=== PATIENT | male | born 1950 | race Caucasian/White ===

== ENCOUNTER 2017-05-17 13:09 | Emergency (ER) | payer MEDICARE, BC ==
[2017-05-17] MEDS ORDERED: BUFFERED LIDOCAINE 10 ML SYRINGE SUBQ STA (13:54)
[2017-05-17] MEDS ORDERED: TETANUS/DIPHTHERIA/PERTUSSIS 0.5 ML SYRINGE IM ONE (13:54)
--- NOTE | 2017-05-17 13:56 | ED Physician Documentation ---
PD HPI UPPER EXT INJURY - Stated complaint Stated Complaint: LEFT FINGER PX - Chief complaint Chief Complaint: Ext Problem - History obtained from History obtained from: Patient - History of Present Illness Location: Other (66-year-old gentleman with unknown tetanus status, he has not been able to get his wedding ring off for years and he burned himself while cooking 2 nights ago and his finger swelled even more and now needs the ring cut off.) Review of Systems Constitutional: reports: Reviewed and negative Throat: reports: Reviewed and negative Cardiac: reports: Reviewed and negative PD PAST MEDICAL HISTORY - Present Medications Home Medications: Ambulatory Orders Medication Instructions Recorded Confirmed No Known Home Medications [No 05/17/17 05/17/17 Known Home Medications] - Allergies Allergies/Adverse Reactions: Allergies Allergy/AdvReac Type Severity Reaction Status Date / Time No Known Drug Allergies Allergy Verified 05/17/17 13:18 PD ED PE NORMAL - Vitals Vital signs reviewed: Yes - General General: Alert and oriented X 3, No acute distress - Extremities Extremities: Other (Scattered second-degree maxwell over the dorsum of the third through fifth fingers of the left hand. The ears are all little swollen and it is clear that the ring needs to be cut off on the ring finger.) - Neuro Neuro: Alert and oriented X 3, Normal speech Results - Vitals Vitals: Vital Signs - 24 hr 05/17/17 13:15 Temperature 36.4 C L Heart Rate 74 Respiratory 18 Rate Blood Pressure 176/95 H O2 Saturation 99 Oxygen O2 Source Room air Procedures - General procedure General procedure: The ring was cut off using a circular saw without injury to the patient's. - Regional nerve block Nerve block site: Digital - note digit(s) (L 4th) Nerve block anesthesia: Lidocaine 1% Nerve block aftercare: Excellent anesthesia Departure - Departure Disposition: 01 Home, Self Care Clinical Impression: Tight ring on finger Burn, hands, second degree Qualifiers: Encounter type: initial encounter Burn of hand location: multiple fingers excluding thumb Laterality: left Qualified Code(s): T23.232A - Burn of second degree of multiple left fingers (nail), not including thumb, initial encounter Condition: Good Record reviewed to determine appropriate education?: Yes Instructions: ED Burn D 2nd Comments: For the maxwell, wash with soap and water and then dressed with bacitracin ointment and Band-Aids which is available [id number]. Your blood pressure was elevated today on check into the emergency department. This does not mean that you have hypertension, it is a common phenomenon to come to the emergency department and have elevated blood pressure. I recommend that you see your primary care physician within the week to have it rechecked when you are feeling better.
[2017-05-17 14:20] VITALS: BP 191/100
== END 2017-05-17 14:19 | disposition home or self-care (01) ==
LOC: ED 13:09
DX: S60.445A External constriction of left ring finger, initial encounter (principal); W49.04XA Ring or other jewelry causing external constriction, initial encounter; T23.232A Burn of second degree of multiple left fingers (nail), not including thumb, initial encounter; T31.0 Burns involving less than 10% of body surface; Y93.G3 Activity, cooking and baking; Z23 Encounter for immunization; R03.0 Elevated blood-pressure reading, without diagnosis of hypertension
CPT/HCPCS: 64450; 90471; 99282; 99283

== ENCOUNTER 2021-04-13 09:22 | Outpatient (CLI) | payer MEDICARE, BC ==
[2021-04-13 13:51] LABS: BASOPHILS % (AUTO) 0.1 %; EOSINOPHILS # (AUTO) 0.1 10^3/uL (0.0-0.7); EOSINOPHILS % (AUTO) 1.4 %; HCT - HEMATOCRIT 49.1 % (42.0-52.0); HGB - HEMOGLOBIN 15.9 g/dL (14.0-18.0); LYMPHOCYTES # (AUTO) 1.8 10^3/uL (1.5-3.5); LYMPHOCYTES % (AUTO) 24.8 %; MEAN CORPUSCULAR HEMOGLOBIN 29.3 pg (27.0-31.0); MEAN CORPUSCULAR HGB CONC 32.4 g/dL (32.0-36.0); MEAN CORPUSCULAR VOLUME 90.4 fL (80.0-94.0); MEAN PLATELET VOLUME 12.1 fL (7.4-11.4); MONOCYTES # (AUTO) 0.9 10^3/uL (0.0-1.0); MONOCYTES % (AUTO) 12.2 %; NEUTROPHILS # (AUTO) 4.5 10^3/uL (1.5-6.6); NEUTROPHILS % (AUTO) 61.1 %; PLT - PLATELET COUNT 155 10^3/uL (130-450); RED BLOOD COUNT 5.43 10^6/uL (4.70-6.10); WHITE BLOOD COUNT 7.4 x10^3/uL (4.8-10.8)
[2021-04-13 14:15] LABS: THYROID STIMULATING HORMONE 5.81 uIU/mL (0.34-5.60)
[2021-04-13 14:31] LABS: ALBUMIN 4.3 g/dL (3.2-5.5); ALBUMIN/GLOBULIN RATIO 1.5 (1.0-2.2); ALKALINE PHOSPHATASE 65 IU/L (42-121); ALT ALANINE AMINOTRANSFERASE 49 IU/L (10-60); AST ASPARTATE AMINOTRANSFERASE 27 IU/L (10-42); BILIRUBIN,TOTAL 1.1 mg/dL (0.2-1.0); BUN - BLOOD UREA NITROGEN 25 mg/dL (6-20); CALCIUM 9.2 mg/dL (8.5-10.3); CARBON DIOXIDE - CO2 29 mmol/L (21-32); CHLORIDE 100 mmol/L (101-111); CHOL/HDL RATIO 5.6 (<5.0); CHOLESTEROL 285 mg/dL; CREATININE 1.1 mg/dL (0.6-1.2); GFR - MDRD 66 (>89); GLUCOSE 93 mg/dL (70-100); HDL CHOLESTEROL 51 mg/dL; LDL CHOLESTEROL,CALCULATED 210 mg/dL; LDL/HDL RATIO 4.1 (<3.6); POTASSIUM 4.2 mmol/L (3.5-5.0); SODIUM 139 mmol/L (135-145); TOTAL PROTEIN 7.2 g/dL (6.7-8.2); TRIGLYCERIDES 121 mg/dL; VLDL CHOLESTEROL 24 mg/dL
[2021-04-13 14:35] LABS: ESTIMATED AVERAGE GLUCOSE 117 mg/dL (70-100); HEMOGLOBIN A1c% 5.7 % (4.27-6.07)
[2021-04-13 15:05] LABS: FREE T4 (FREE THYROXINE) 0.91 ng/dL (0.58-1.64)
== END 2021-04-13 09:23 | disposition home or self-care (01) ==
LOC: LAB.N 09:22
PROVIDERS: ATTEND Physician Assistant
DX: Z00.00 Encounter for general adult medical examination without abnormal findings (principal)
CPT/HCPCS: 36415; 80053; 80061; 83036; 83721; 84439; 84443; 85025

== ENCOUNTER 2021-06-02 08:19 | Outpatient (CLI) | payer MEDICARE, BC | END 2021-06-02 08:20 | disposition home or self-care (01) | LOC: LAB.N 08:19 | PROVIDERS: ATTEND Ophthalmology | DX: Z01.812 Encounter for preprocedural laboratory examination (principal); H25.11 Age-related nuclear cataract, right eye; Z20.822 Contact with and (suspected) exposure to COVID-19 ==

== ENCOUNTER 2021-06-03 08:19 | Day surgery (SDC) | payer BC, MEDICARE, OTHER ==
[~2021-06-03 08:19] MED LIST: CYCLOPENTOLATE 1% OPHTH DROPS 2 ML ONE; KETOROLAC 0.45% OPHTH DROPS ONE; PHENYLEPHRINE 2.5% OPHTH 2 ML DROPS ONE; PROPARACAINE 0.5% OPHTH DROPS 15 ML ONE
[2021-06-03] MEDS ORDERED: LACTATED RINGERS 1,000 ML IV ONE ×2 (08:35→09:58)
--- NOTE | 2021-06-03 09:11 | ANESTHESIA ---
Pre-Anesthesia VS, & Labs - Diagnosis R cataract - Procedure R PhacoIOL Vital Signs: Temp Pulse Resp BP Pulse Ox 36.7 C 70 19 143/95 H 96 06/03/21 08:37 06/03/21 08:37 06/03/21 08:37 06/03/21 08:37 06/03/21 08:37 Height: 5 ft 6 in Weight (kg): 85.6 kg Body Mass Index: 30.4 BMI Classification: Obese - NPO >8 hours Home Medications and Allergies Home Medications: Ambulatory Orders Multivitamin 1 each PO DAILY 06/02/21 Multivitamin 1 each PO DAILY 06/02/21 Allergies/Adverse Reactions: Allergies Allergy/AdvReac Type Severity Reaction Status Date / Time lisinopril Allergy Respiratory Verified 06/03/21 09:10 losartan Allergy Unknown Verified 06/03/21 09:10 Anes History & Medical History - Anesthetic History Anesthesia Complications: reports: No previous complications Family history of Anesthesia Complications: Denies Family history of Malignant Hyperthermia: Denies - Medical History Cardiovascular: reports: None Pulmonary: reports: None Gastrointestinal: reports: None Urinary: reports: None Musculoskeletal: reports: Osteoarthritis Endocrine/Autoimmune: reports: None Skin: reports: None Smoking Status: Never smoker - Surgical History General: reports: Appendectomy Exam General: Alert, Oriented x3, Cooperative Dental: WNL Mouth Openin Fingerbreadth Neck Mobility: Normal Mallampati classification: II Thyromental Distance: 4-6 cm Respiratory: Lungs clear Cardiovascular: Regular rate Plan Anesthesia Type: MAC Consent for Procedure(s) Verified and Reviewed: Yes Code Status: Attempt Resuscitation ASA classification: 2-Mild systemic disease Is this case an emergency?: No
[2021-06-03] MEDS ORDERED: fentaNYL 100 MCG/2 ML VIAL ONE (09:14)
[2021-06-03] MEDS ORDERED: MIDAZOLAM 2 MG/2 ML VIAL ONE (09:14)
[2021-06-03] MEDS ORDERED: EPINEPHrine 1 MG/ML AMP IR ONE (09:37)
[2021-06-03] MEDS ORDERED: BRIMONIDINE 0.2% OPHTH DROPS 5 ML OPTH ONE (09:37)
[2021-06-03] MEDS ORDERED: BSS/LIDOCAINE/EPINEPHRINE 1 ML SYRINGE IO ONE (09:37)
[2021-06-03] MEDS ORDERED: TIMOLOL 0.5% OPHTH DROPS OPTH ONE (09:37)
[2021-06-03] MEDS ORDERED: PROPARACAINE 0.5% OPHTH DROPS 15 ML EACHEYE ONE (09:38)
[2021-06-03] MEDS ORDERED: VANCOMYCIN OPHTHALMI 8MG/0.8ML 8 MG/0.8 ML SYRINGE IO ONE (09:38)
[2021-06-03] MEDS ORDERED: TRIAMCIN/MOXIFLOX OPHTHALMIC 0.6 ML VIAL IO ONE ×2 (09:38→11:27)
--- NOTE | 2021-06-03 10:06 | OPERATIVE REPORT ---
Operative Report - Other Other Information/Narrative: Date of Surgery: 06/03/21 Preop Dx: Visually significant cataract right eye. This was the first cataract surgery. Postop Dx: Same Procedure: Phacoemulsification with posterior chamber intraocular lens implant right eye Surgeon: Dr. Richard Laura Anesthesia: Monitored anesthesia care Complications: None Operative Indications: This is a 70-year-old M with progressive vision loss in the right eye due to 3+ nuclear sclerotic cataract. Best corrected visual acuity was 20/60 with glare to light perception vision in the right eye. Indications for surgery were: - Overall decrease in vision - Difficulty seeing words on a computer screen - Difficulty reading - Difficulty seeing words, closed captions, or game scores on TV - Difficulty seeing street signs - Difficulty driving in low light or at night - Difficulty driving at night because of headlights from other vehicles - Difficulty with glare or bright lights in any situation - Difficulty tracking a golf ball - Decreased acuity with firearms The patient was consented at length concerning the risks and benefits of cataract surgery after which the patient expressed a desire to proceed with surgery. Operative Procedure: The patient was taken into OR#3 and placed under monitored anesthesia care. A surgical time-out was conducted confirming correct patient, correct procedure, and correct surgical site. The patient was given topical anesthesia and then prepped and draped in the usual sterile fashion. The eye was entered at the 6 and 3 oclock positions. Intracameral Shugarcaine was injected into the anterior chamber followed by a dispersive viscoelastic. A continuous-tear curvilinear capsulorhexis was performed. The nucleus was hydrodissected and phacoemulsified. The cortex was evacuated using automated infusion and aspiration. A cohesive viscoelastic was injected into the capsular bag and a 23.5 diopter intraocular lens was inserted into the bag. Infusion and aspiration were used to evacuate the viscoelastic materials from the eye. The wounds were hydrated and the eye inflated to physiologic pressure using balanced salt solution. Approximately 0.25ml of a mixture of triamcinolone and moxifloxacin was injected trans-sclerally into the vitreous in the inferotemporal quadrant using a 30 gauge cannula. An additional 0.55ml of a mixture of triamcinolone, moxifloxacin, and vancomycin was injected subconjunctivally in the superior quadrant for infection and inflammation prophylaxis. Wound integrity was checked with Weck-Neela sponges. The patient was taken from the operating room in good condition and given post-op instructions.
[2021-06-03 10:14] VITALS: BP 118/69
[2021-06-03] MEDS ORDERED: EPINEPHrine 1 MG/ML AMP ONE (11:27)
[2021-06-03] MEDS ORDERED: BRIMONIDINE 0.2% OPHTH DROPS 5 ML ONE (11:27)
[2021-06-03] MEDS ORDERED: BSS/LIDOCAINE/EPINEPHRINE 1 ML VIAL ONE (11:28)
[2021-06-03] MEDS ORDERED: TIMOLOL 0.5% OPHTH DROPS ONE (11:28)
--- NOTE | 2021-06-03 13:41 | ANESTHESIA POST OP EVALUATION ---
Anesthesia Post Eval - Post Anesthesia Eval Vitals: Last Vital Signs Temp 36.9 C 06/03/21 09:57 Pulse 66 06/03/21 10:12 Resp 16 06/03/21 10:12 BP 118/69 06/03/21 10:12 Pulse Ox 96 06/03/21 10:12 CV Function Including HR & BP: Stable Pain Control: Satisfactory Nausea & Vomiting: Negative Mental Status: Baseline Respiratory Status: Airway Patent Hydration Status: Satisfactory Anesthesia Complications: None
== END 2021-06-03 08:20 | disposition home or self-care (01) ==
LOC: SDS 08:19
PROVIDERS: ATTEND Ophthalmology
DX: H25.11 Age-related nuclear cataract, right eye (principal); E66.9 Obesity, unspecified; Z68.30 Body mass index [BMI] 30.0-30.9, adult
CPT/HCPCS: 66984; A9270; J3490; J7120

== ENCOUNTER 2022-04-27 12:07 | Outpatient (CLI) | payer OTHER ==
[2022-04-27] MEDS ORDERED: iohexoL-300 100 ML VIAL ONE (12:21)
[2022-04-27] MEDS ORDERED: iohexoL-300 100 ML VIAL IVP ONE (13:28)
--- NOTE | 2022-04-27 15:53 | CT Report ---
PROCEDURE: IVP INDICATIONS: HEMATURIA CONTRAST: 140ml Omnipaque 300 TECHNIQUE: After the administration of intravenous contrast, 5 mm thick sections acquired from the diaphragms to the symphysis. 5 mm thick coronal and sagittal reformats were acquired. For radiation dose reducti on, the following was used: automated exposure control, adjustment of mA and/or kV according to bob ent size. COMPARISON: None. FINDINGS: Image quality: Excellent. Lung bases: Lung bases are clear. Heart size is normal. Small hiatal hernia. Urinary system: Both kidneys are normal in size and enhancement. Contrast-filled renal calyces are normal in morphology. Contrast filled portions of both ureters are normal in caliber. There is a large stone within the bladder measuring 3.2 x 4.3 cm. There is is mildly focal thickening in bladder wall anteriorly (series 6 image 68). Prostate is enlarged. There is a 2.2 cm round nodule in the right aspect of the prostate. Solid organs: Liver and spleen are normal in size and enhancement. Gallbladder is normal. Biliary system is non dilated. Pancreas enhances normally. No adrenal nodules. Peritoneum and bowel: Bowel loops demonstrate normal caliber. Mild thickening of duodenum (series 6 image 31). No free fluid or air. Nodes and vessels: No retroperitoneal or mesenteric adenopathy by size criteria. Aorta and inferior vena cava are normal in size. Abdominal wall: There is a tiny fat-containing umbilical hernia. Pelvis: No pathologic free pelvic fluid. No inguinal hernias or adenopathy. Bones: No suspicious bony lesions. No vertebral body compression fractures. IMPRESSION: 1. There is a large bladder stone. 2. Mild focal bladder wall thickening anteriorly. Recommend cystoscopy for further evaluation. 3. Enlarged prostate. 2.2 cm nodule is noted in the right side of the prostate. If clinically indicat ed, prostate MRI would be helpful. Reviewed by: Arden Valladares MD on 04/27/2022 3:52 PM PST Approved by: Arden Valladares MD on 04/27/2022 3:52 PM PST Station ID: [id number]
== END 2022-04-27 12:08 | disposition home or self-care (01) ==
LOC: DI 12:07
PROVIDERS: ATTEND Family Medicine
DX: R31.0 Gross hematuria (principal); N21.0 Calculus in bladder; N32.89 Other specified disorders of bladder; N40.1 Benign prostatic hyperplasia with lower urinary tract symptoms; N40.3 Nodular prostate with lower urinary tract symptoms
CPT/HCPCS: 36415; 74178; 82565; Q9967

== ENCOUNTER 2022-07-18 13:51 | Emergency (ER) | payer OTHER ==
[2022-07-18 14:00] VITALS: BP 127/80
[2022-07-18 14:34] LABS: BASOPHILS % (AUTO) 0.2 %; EOSINOPHILS # (AUTO) 0.1 10^3/uL (0.0-0.7); EOSINOPHILS % (AUTO) 0.4 %; HCT - HEMATOCRIT 46.5 % (42.0-52.0); HGB - HEMOGLOBIN 15.1 g/dL (14.0-18.0); LYMPHOCYTES # (AUTO) 1.1 10^3/uL (1.5-3.5); LYMPHOCYTES % (AUTO) 6.6 %; MEAN CORPUSCULAR HEMOGLOBIN 29.3 pg (27.0-31.0); MEAN CORPUSCULAR HGB CONC 32.5 g/dL (32.0-36.0); MEAN CORPUSCULAR VOLUME 90.1 fL (80.0-94.0); MEAN PLATELET VOLUME 11.5 fL (7.4-11.4); MONOCYTES # (AUTO) 1.9 10^3/uL (0.0-1.0); MONOCYTES % (AUTO) 11.4 %; NEUTROPHILS # (AUTO) 13.3 10^3/uL (1.5-6.6); NEUTROPHILS % (AUTO) 80.9 %; PLT - PLATELET COUNT 89 10^3/uL (130-450); RED BLOOD COUNT 5.16 10^6/uL (4.70-6.10); RED CELL DISTRIBUTION WIDTH 12.9 % (12.0-15.0); WHITE BLOOD COUNT 16.5 x10^3/uL (4.8-10.8)
[2022-07-18 14:38] LABS: SLIDE REVIEW? Indicated
[2022-07-18 14:39] LABS: RBC MORPHOLOGY (MULTIPLE) 2+ ANISOCYTOSIS (NORMAL)
[2022-07-18 15:07] LABS: ALBUMIN 3.7 g/dL (3.2-5.5); ALBUMIN/GLOBULIN RATIO 0.9 (1.0-2.2); BILIRUBIN,TOTAL 2.2 mg/dL (0.2-1.0); CALCIUM 8.6 mg/dL (8.5-10.3); CREATININE 1.6 mg/dL (0.6-1.2); POTASSIUM 3.6 mmol/L (3.5-5.0); TOTAL PROTEIN 7.9 g/dL (6.7-8.2)
[2022-07-18 15:39] LABS: GLUCOSE, URINE (UA) NEGATIVE (NEGATIVE); KETONES,URINE (UA) TRACE mg/dL (NEGATIVE); LEUKOCYTE ESTERASE, URINE LARGE (NEGATIVE); NITRITE,URINE POSITIVE (NEGATIVE); OCCULT BLOOD,URINE LARGE (NEGATIVE); PH,URINE 5.5 PH (5.0-7.5); PROTEIN,URINE 100 mg/dL (NEGATIVE); UROBILINOGEN,URINE 2 E.U./dL (NORMAL)
[2022-07-18 15:48] LABS: BILIRUBIN,URINE SMALL (NEGATIVE); CLARITY,URINE CLOUDY (CLEAR); ICTOTEST,URINE POSITIVE
[2022-07-18 15:54] LABS: BACTERIA,URINE Many /HPF (None Seen); SQUAMOUS EPITHELIAL CELL,UR FEW Squamous (<= Few); WBC CLUMPS,URINE PRESENT; WBC,URINE >25 /HPF (0-3)
[2022-07-18 15:55] LABS: AMORPHOUS SEDIMENT,UR Few /LPF
--- NOTE | 2022-07-18 16:46 | XRAY Report ---
PROCEDURE: Chest 1 View X-Ray INDICATIONS: fever TECHNIQUE: One view of the chest was acquired. COMPARISON: None. FINDINGS: Surgical changes and devices: None. Lungs and pleura: No pleural effusions or pneumothorax. Lungs are clear. Mediastinum: Mediastinal contours appear normal. Heart size is normal. Bones and chest wall: No suspicious bony lesions. Overlying soft tissues appear unremarkable. IMPRESSION: No acute cardiopulmonary process. Reviewed by: Mishel Gongora MD on 07/18/2022 4:45 PM PDT Approved by: Mishel Gongora MD on 07/18/2022 4:45 PM PDT Station ID: [id number]
--- NOTE | 2022-07-18 16:54 | ED Physician Documentation ---
History of Present Illness - Stated complaint Stated Complaint: HIGH FEVER - Chief complaint Chief Complaint: Fever - History obtained from History obtained from: Patient, Family - Additonal information Additional information: The patient comes to the emergency department chief complaint of fevers that been going on for the last several days. The patient on the third of this month had lithotripsy of a large stone in his bladder over at [facility] and was subsequently discharged. states patient was not placed on any antibiotics afterward. Patient first developed fevers several days ago over the weekend and the highest temperature noted was 104 orally. The temperature would come down with Tylenol but then go back up. states that the temperature height has gradually been coming down and that this morning, it was only 101. The patient states that when his temperature is up, he gets a headache and sometimes chills and aches. However when the fever comes down, he feels fairly normal. He denies any focal symptoms such as cough, shortness of breath, sore throat, runny nose, abdominal pain, vomiting, or diarrhea. He has not had any dysuria or back pain since the procedure. He is on Pyridium so his urine is orange but he has not noticed any cloudiness. No sick contacts that the patient knows of. No other complaints at this time. PD PAST MEDICAL HISTORY - Past Medical History Cardiovascular: None Respiratory: None Endocrine/Autoimmune: None GI: None : None HEENT: Chronic hearing loss Psych: Post traumatic stress disorder Musculoskeletal: Osteoarthritis Derm: None - Past Surgical History General: Appendectomy - Present Medications Home Medications: Ambulatory Orders Medication Instructions Recorded Confirmed Multivitamin 1 each PO DAILY 06/02/21 06/02/21 Ciprofloxacin HCl [Cipro] 500 mg PO BID #20 tablet 07/18/22 - Allergies Allergies/Adverse Reactions: Allergies Allergy/AdvReac Type Severity Reaction Status Date / Time lisinopril Allergy Respiratory Verified 07/18/22 13:56 losartan Allergy Unknown Verified 07/18/22 13:56 - Social History Does the pt smoke?: No Smoking Status: Never smoker PD ED PE NORMAL - Vitals Vital signs reviewed: Yes - General General: Alert and oriented X 3, No acute distress, Well developed/nourished - HEENT HEENT: Atraumatic, PERRL, EOMI, Moist mucous membranes - Neck Neck: Supple, no meningeal sign - Cardiac Cardiac: RRR, No murmur, Strong equal pulses - Respiratory Respiratory: No respiratory distress, Clear bilaterally - Abdomen Abdomen: Soft, Non tender, Non distended - Back Back: No CVA TTP - Derm Derm: Normal color, Warm and dry, No rash - Extremities Extremities: No deformity, No edema - Neuro Neuro: Alert and oriented X 3, rn traveling 2-12 intact, No motor deficit, No sensory deficit, Normal speech, Other (Grossly intact) - Psych Psych: Normal mood, Normal affect Results - Vitals Vitals: Vital Signs - 24 hr 07/18/22 13:56 Temperature 36.6 C Heart Rate 90 Respiratory 16 Rate Blood Pressure 127/80 O2 Saturation 98 Oxygen O2 Source Room air - Labs Labs: Laboratory Tests 07/18/22 07/18/22 07/18/22 14:24 14:24 14:24 WBC 16.5 H RBC 5.16 Hgb 15.1 Hct 46.5 MCV 90.1 MCH 29.3 MCHC 32.5 RDW 12.9 Plt Count 89 L MPV 11.5 H Neut # (Auto) 13.3 H Lymph # (Auto) 1.1 L [place] # (Auto) 1.9 H Eos # (Auto) 0.1 Baso # (Auto) 0.0 Absolute Nucleated RBC 0.00 Nucleated RBC % 0.0 Manual Slide Review Indicated RBC Morph Micro Appear 2+ ANISOCYTOSIS Sodium 135 Potassium 3.6 Chloride 97 L Carbon Dioxide 27 Anion Gap 11.0 BUN 28 H Creatinine 1.6 H Estimated GFR (MDRD) 43 L Glucose 134 H Lactic Acid 1.1 Calcium 8.6 Total Bilirubin 2.2 H AST 22 ALT 37 Alkaline Phosphatase 77 Total Protein 7.9 Albumin 3.7 Globulin 4.2 Albumin/Globulin Ratio 0.9 L Urine Color Urine Clarity Urine pH Ur Specific [place] Urine Protein Urine Glucose (UA) Urine Ketones Urine Occult Blood Urine Nitrite Urine Bilirubin Urine Urobilinogen Ur Leukocyte Esterase Urine RBC Urine WBC Urine WBC Clumps Ur Squamous Epith Cells Amorphous Sediment Urine Bacteria Urine Culture Comments Nasal Adenovirus (PCR) Nasal B. parapertussis DNA (PCR) Nasal Coronavir 229E PCR Nasal Coronavir HKU1 PCR Nasal Coronavir NL63 PCR Nasal Coronavir OC43 PCR Nasal Enterovir/Rhinovir PCR Nasal Influenza B PCR Nasal Influenza A PCR Nasal Parainfluen 1 PCR Nasal Parainfluen 2 PCR Nasal Parainfluen 3 PCR Nasal Parainfluen 4 PCR Nasal RSV (PCR) Nasal B.pertussis DNA PCR Nasal C.pneumoniae (PCR) Randell Human Metapneumo PCR Nasal M.pneumoniae (PCR) Nasal SARS-CoV-2 (PCR) 07/18/22 07/18/22 15:33 16:35 WBC RBC Hgb Hct MCV MCH MCHC RDW Plt Count MPV Neut # (Auto) Lymph # (Auto) [place] # (Auto) Eos # (Auto) Baso # (Auto) Absolute Nucleated RBC Nucleated RBC % Manual Slide Review RBC Morph Micro Appear Sodium Potassium Chloride Carbon Dioxide Anion Gap BUN Creatinine Estimated GFR (MDRD) Glucose Lactic Acid Calcium Total Bilirubin AST ALT Alkaline Phosphatase Total Protein Albumin Globulin Albumin/Globulin Ratio Urine Color BROWN Urine Clarity CLOUDY Urine pH 5.5 Ur Specific [place] >=1.030 H Urine Protein 100 H Urine Glucose (UA) NEGATIVE Urine Ketones TRACE Urine Occult Blood LARGE H Urine Nitrite POSITIVE H Urine Bilirubin SMALL H Urine Urobilinogen 2 H Ur Leukocyte Esterase LARGE H Urine RBC 11-25 H Urine WBC >25 H Urine WBC Clumps PRESENT Ur Squamous Epith Cells FEW Squamous Amorphous Sediment Few Urine Bacteria Many H Urine Culture Comments INDICATED Nasal Adenovirus (PCR) NOT DETECTED Nasal B. parapertussis DNA (PCR) NOT DETECTED Nasal Coronavir 229E PCR NOT DETECTED Nasal Coronavir HKU1 PCR NOT DETECTED Nasal Coronavir NL63 PCR NOT DETECTED Nasal Coronavir OC43 PCR NOT DETECTED Nasal Enterovir/Rhinovir PCR NOT DETECTED Nasal Influenza B PCR NOT DETECTED Nasal Influenza A PCR NOT DETECTED Nasal Parainfluen 1 PCR NOT DETECTED Nasal Parainfluen 2 PCR NOT DETECTED Nasal Parainfluen 3 PCR NOT DETECTED Nasal Parainfluen 4 PCR NOT DETECTED Nasal RSV (PCR) NOT DETECTED Nasal B.pertussis DNA PCR NOT DETECTED Nasal C.pneumoniae (PCR) NOT DETECTED Randell Human Metapneumo PCR NOT DETECTED Nasal M.pneumoniae (PCR) NOT DETECTED Nasal SARS-CoV-2 (PCR) NOT DETECTED - Rads (name of study) chest XR Relevant Findings:: Final report received, See rad report (Negative) PD Medical Decision Making - ED course Complexity details: reviewed results, re-evaluated patient, considered differential, d/w patient, d/w family ED course: The patient was extremely well-appearing in the emergency department, and given his lack of focal symptoms, it was not clear exactly where the the source of the fever might be. Of course the Urine was a consideration, and urinalysis was obtained, but the patient was also worked up with laboratory studies including CBC and ER abdominal panel, blood cultures, and chest x-ray, as well as respiratory PCR panel, all of which were ordered and reviewed by me. CBC showed a white blood cell count of 16.5. The patient's BUN and creatinine were mildly elevated. Lactic acid level was normal. Chest x-ray was unremarkable and PCR panel was pending at this time. Urinalysis was positive for infection. I have started the patient on ciprofloxacin here in the emergency department and I will send in a prescription for the same for him. Blood cultures are pending and will will return results tomorrow. The patient understands that if his cultures are positive, he will be called at home. We have discussed the need for plenty of fluids, fever control, and the usual indications for return. Departure - Departure Disposition: 01 Home, Self Care Clinical Impression: Urinary tract infection Qualifiers: Urinary tract infection type: acute cystitis Hematuria presence: with hematuria Qualified Code(s): N30.01 - Acute cystitis with hematuria Condition: Stable Instructions: ED UTI Cystitis Male Prescriptions: Ciprofloxacin HCl [Cipro] 500 mg PO BID #20 tablet Comments: Your blood work showed a moderately elevated white blood cell count, And your urinalysis was positive for infection. Your chest x-ray looks good and the remainder of your labs look fairly good, though you should be a little more aggressive about hydrating at home. You should aim to drink 8 to 10 cups of water per day, especially while you are recovering from your lithotripsy. You have been given your first dose of antibiotics here in the emergency department, and a prescription for the same has been electronically transmitted to [facility] pharmacy in [place], your pharmacy of choice on record you may continue to take ibuprofen or Tylenol as needed for fever. You may take Tylenol 650 mg every 4 hours as well as ibuprofen 600 mg every 6 hours. The 2 medications are unrelated and may be given at the same time. Please continue your plans to follow-up with your urologist. Please also call your primary doctor to set up a follow-up appointment, as well. Discharge Date/Time: 07/18/22 17:00
[2022-07-18] MEDS ORDERED: CIPROFLOXACIN 250 MG TABLET PO STA (16:57)
[2022-07-18 17:36] LABS: B. PARAPERTUSSIS- RESP PCR PAN NOT DETECTED; B. PERTUSSIS- RESP PCR PANEL NOT DETECTED; C. PNEUMONIAE- RESP PCR PANEL NOT DETECTED; CORONAVIRUS 229E-RESP PCR NOT DETECTED; CORONAVIRUS HKU1-RESP PCR NOT DETECTED; CORONAVIRUS NL63-RESP PCR NOT DETECTED; CORONAVIRUS OC43-RESP PCR NOT DETECTED; HUMAN METAPNEUMOVIRUS NOT DETECTED; INFLUENZA A- RESP PCR PANEL NOT DETECTED; INFLUENZA B - RESP PCR PANEL NOT DETECTED; M. PNEUMONIAE- RESP PCR PANEL NOT DETECTED; PARAINFLUENZA VIRUS 1 NOT DETECTED; PARAINFLUENZA VIRUS 2 NOT DETECTED; PARAINFLUENZA VIRUS 3 NOT DETECTED; PARAINFLUENZA VIRUS 4 NOT DETECTED; RHINOVIRUS/ENTEROVIRUS NOT DETECTED; RSV- RESP PCR PANEL NOT DETECTED; SARS-CoV-2 -RESP PCR PANEL NOT DETECTED
== END 2022-07-18 17:00 | disposition home or self-care (01) ==
LOC: ED 13:51
DX: N30.01 Acute cystitis with hematuria (principal); Z20.822 Contact with and (suspected) exposure to COVID-19
CPT/HCPCS: 36415; 71045; 80053; 81001; 83605; 85025; 87040; 87086; 87633; 99284; A9270; 87181